=== PATIENT | female | born 1960 | race Asian ===

== ENCOUNTER 2017-08-03 21:07 | Emergency (ER) | payer OTHER ==
[2017-08-03] MEDS: SOD CHLORIDE 0.9% 1,000 ML IV (23:20)
[2017-08-04 00:48] LABS: ADD MAN DIFF? NO
[2017-08-04 00:53] LABS: BASOPHILS % 0.6 % (0.0-2.0); EOSINOPHILS # 0.1 10^3/ul (0.0-0.5); EOSINOPHILS % 0.8 % (0.0-7.0); HEMATOCRIT 37.3 % (37.0-47.0); HEMOGLOBIN 12.9 g/dl (12.0-16.0); LYMPHOCYTES # 3.2 10^3/ul (0.8-2.9); LYMPHOCYTES % 43.9 % (15.0-51.0); MEAN CORPUSCULAR HEMOGLOBIN 30.8 pg (29.0-33.0); MEAN CORPUSCULAR HGB CONC 34.6 g/dl (32.0-37.0); MEAN PLATELET VOLUME 9.5 fl (7.4-10.4); MONOCYTE # 0.7 10^3/ul (0.3-0.9); MONOCYTES % 9.7 % (0.0-11.0); NEUTROPHIL # 3.3 10^3/ul (1.6-7.5); NEUTROPHILS % 44.9 % (39.0-77.0); PLATELET COUNT 296 10^3/UL (140-415); RED BLOOD COUNT 4.19 10^6/ul (4.20-5.40); RED CELL DISTRIBUTION WIDTH 12.1 % (11.5-14.5)
[2017-08-04 00:53] LABS: WHITE BLOOD COUNT 7.2 10^3/ul (4.8-10.8)
[2017-08-04 01:12] LABS: ANION GAP 16 (8-16); BLOOD UREA NITROGEN 9 mg/dl (7-20); CARBON DIOXIDE 28 mmol/L (21-31); CHLORIDE 100 mmol/L (97-110); CREATININE 0.49 mg/dl (0.44-1.00); GLUCOSE 108 mg/dl (70-220); POTASSIUM 3.7 mmol/L (3.5-5.1); SODIUM 140 mmol/L (135-144)
[2017-08-04] MEDS: ONDANSETRON 4 MG INJ IV (01:33)
[2017-08-04] MEDS: morphine 4 MG/ML VIAL IV (01:34)
[2017-08-04 02:13] LABS: ERYTHROCYTE SEDIMENTATION RATE 22 mm/Hr (0-30)
[2017-08-04 03:07] LABS: PARTIAL THROMBOPLASTIN TIME 29.3 Sec (25.0-35.0); PROTIME 12.3 Sec (11.9-14.9)
== END 2017-08-04 03:02 | disposition home or self-care (01) ==
LOC: FTE 08-04 03:02
DX: R51 Headache (principal); I10 Essential (primary) hypertension; E11.9 Type 2 diabetes mellitus without complications; R07.9 Chest pain, unspecified
CPT/HCPCS: 36415; 70450; 80048; 85025; 85610; 85651; 85730; 96374; 96375; 99285-25